=== PATIENT | female | born 1990 ===

== ENCOUNTER 2018-07-24 17:57 | Inpatient (IN) | payer MEDICAID ==
[2018-07-24 18:24] VITALS: BMI 35.8
[2018-07-24] MEDS ORDERED: Lactated Ringer's 1,000 ML IV ONE (18:24)
[2018-07-24 18:50] LABS: SQUAMOUS EPITHIAL 17 /hpf (0-5); URINE BACTERIA RARE (<OCC); URINE BILIRUBIN NEGATIVE (NEGATIVE); URINE BLOOD 3+ (NEGATIVE); URINE CLARITY Hazy (Clear); URINE COLOR Yellow (YELLOW); URINE GLUCOSE (UA) NORMAL (Normal); URINE LEUKOCYTE ESTERASE 3+ Leu/uL (Negative); URINE PROTEIN NEGATIVE (NEGATIVE); URINE UROBILINOGEN NORMAL mg/dL (0.2-1.0)
[2018-07-24 18:56] LABS: ALB/GLOB RATIO 1.1 (1.0-2.1); ALBUMIN 3.5 g/dL (3.5-5.0); ALT/SGPT 14 U/L (9-52); AST/SGOT 26 U/L (14-36); BASO % 0.1 % (0.0-2.0); BLOOD UREA NITROGEN 7 mg/dL (7-17); CALCIUM 9.4 mg/dl (8.6-10.4); EOS % 0.1 % (0.0-4.0); GFR NON-AFRICAN AMERICAN > 60; HEMOGLOBIN 12.7 g/dL (11.0-16.0); LYMPH # 1.8 K/uL (1.0-4.3); LYMPH % 21.1 % (20.0-40.0); MEAN CELL VOLUME 92.6 fL (81.0-99.0); MEAN CORPUSCULAR HEMOGLOBIN 31.3 pg (27.0-31.0); MEAN CORPUSCULAR HGB CONC 33.8 g/dL (33.0-37.0); MEAN PLATELET VOLUME 9.9 fL (7.2-11.7); MONO # 0.7 K/uL (0.0-0.8); MONO % 7.7 % (0.0-10.0); NEUT # 6.1 K/uL (1.8-7.0); RBC 4.06 Mil/uL (3.80-5.20); RED CELL DISTRIBUTION WIDTH 14.8 % (11.5-14.5); WHITE BLOOD COUNT 8.6 K/uL (4.8-10.8)
[2018-07-24] MEDS ORDERED: Oxycodone/Acetaminophen 5/325 mg Tab PO PRN (19:08)
--- NOTE | 2018-07-24 20:22 | OBHP ---
Datetime: 07/24/2018 19:15 IP Adm Impression: Term, intrauterine ; Active labor IP Admit Plan: Admit to unit; Initiate labor protocol Admit Comment, IP Provider: Patient is a 27 year old at 39w3d KIMBERLY 07/28/18 by LMP 10/21/17 who presented to the unit complaining of contractions. Patient states that her contractions started at a pproximately 2am and has been getting stronger. While on the unit, patient reports having vaginal ble eding. Endorses +FM, denies LOF. issues: Denies OB Hx : 1. 2009 at term, male , 7lbs 8oz, no complications 2. 2014 at term, male , 8lbz 7oz, no complications 3. Current [employer] Hx: LMP - unknown [place] - 12 x monthly x 7 days Denies history of abnormal paps, fibroids Hx of ovarian cysts Allergies: NKDA Medications: PNV, Iron daily Medical History: Denies Surgical History: Denies Social History: Denies alcohol, tobacco, drug use Family History: Mother - healthy; Father - healthy PE: see above A/P: Patient is a 27 year old at 39w3d who presents in active labor -Admit to labor and delivery -Category I tracing -Admission labs: CBC, CMP, TS, UA -Lactated ringers bolus -GBS negative - no antibiotics at this time -Plan to AROM and deliver -We anticipate a vaginal delivery Plan discussed with Dr Miquel Renae DO PGY-2 Pt seen and examined with Dr. Renae and her findings and POC were fully discussed with her and agr eed on. Pelvic Type - PN: Adequate Extremities - PN: Normal Abdomen - PN: Normal Back - PN: Normal Breast - PN: Not Done Lungs - PN: Normal Heart - PN: Normal Thyroid - PN: Normal Neurologic - PN: Normal HEENT - PN: Normal General - PN: Normal Presentation-Admit: Vertex FHR - Baseline A Provider: 150 Membranes, Provider: Intact Contraction Comments Provider: q2min Comments, ACOG Physical Exam: VSS Gen: AAOx3. Uncomfortable Abd: Soft, gravid Ext: No clubbing, cyanosis, edema SVE: /0 Gestation - Est Wks by US: 39.3 IP Hx Assessment: The History has been Reviewed and is Current EGA AdmitDate IP: 39.3 Vital Signs Provider: Reviewed; Within Normal Limits IP Indication for Induction: Not Applicable IP Chief Complaint: Uterine contractions; Vaginal bleeding NICHD Variability Prov Fetus A: Moderate 6-25bpm NICHD Accel Fetus A IP Provider: 15X15 FHR Category Provider Fetus A: Category I NICHD Decel Fetus A IP Provider: None Dilatation, Provider: 10 Effacement, Provider: 100 Station, Provider: 0 Genitourinary Exam: Normal DTRs - PN: Normal
--- NOTE | 2018-07-24 20:27 | OBADHP ---
Datetime: 07/24/2018 19:15 Admit Comment, IP Provider: Patient is a 27 year old at 39w3d KIMBERLY 07/28/18 by LMP 10/21/17 who presented to the unit complaining of contractions. Patient states that her contractions started at a pproximately 2am and has been getting stronger. While on the unit, patient reports having vaginal ble eding. Endorses +FM, denies LOF. issues: Denies OB Hx : 1. 2009 at term, male , 7lbs 8oz, no complications 2. 2014 at term, male , 8lbz 7oz, no complications 3. Current [employer] Hx: LMP - unknown Triad - 12 x monthly x 7 days Denies history of abnormal paps, fibroids Hx of ovarian cysts Allergies: NKDA Medications: PNV, Iron daily Medical History: Denies Surgical History: Denies Social History: Denies alcohol, tobacco, drug use Family History: Mother - healthy; Father - healthy PE: see above A/P: Patient is a 27 year old at 39w3d who presents in active labor -Admit to labor and delivery -Category I tracing -Admission labs: CBC, CMP, TS, UA -Lactated ringers bolus -GBS negative - no antibiotics at this time -Plan to AROM and deliver -We anticipate a vaginal delivery Plan discussed with Dr Miquel Renae DO PGY-2 Pt seen and examined with Dr. Renae and her findings and POC were fully discussed with her and agr eed on. Pelvic Type - PN: Adequate Extremities - PN: Normal Abdomen - PN: Normal Back - PN: Normal Breast - PN: Not Done Lungs - PN: Normal Heart - PN: Normal Thyroid - PN: Normal Neurologic - PN: Normal HEENT - PN: Normal General - PN: Normal Presentation-Admit: Vertex FHR - Baseline A Provider: 150 Membranes, Provider: Intact Contraction Comments Provider: q2min Comments, ACOG Physical Exam: VSS Gen: AAOx3. Uncomfortable Abd: Soft, gravid Ext: No clubbing, cyanosis, edema SVE: /0 Gestation - Est Wks by US: 39.3 IP Hx Assessment: The History has been Reviewed and is Current Vital Signs Provider: Reviewed; Within Normal Limits IP Chief Complaint: Uterine contractions; Vaginal bleeding NICHD Variability Prov Fetus A: Moderate 6-25bpm NICHD Accel Fetus A IP Provider: 15X15 FHR Category Provider Fetus A: Category I NICHD Decel Fetus A IP Provider: None Dilatation, Provider: 10 Effacement, Provider: 100 Station, Provider: 0 Genitourinary Exam: Normal DTRs - PN: Normal EGA AdmitDate IP: 39.3 IP Adm Impression: Term, intrauterine ; Active labor; Intact Membranes IP Admit Plan: Admit to unit; Initiate labor protocol
--- NOTE | 2018-07-24 20:47 | OBDS ---
DELIVERY PERSONNEL Delivery Doctor: Lo Lafleur DO MATERNAL INFORMATION Delivery Anesthesia: None Medications in Delivery: pitocin 20 Estimated Blood Loss (ml): 200 Maternal Complications: None Provider Comments: This now P3 delivered a viable female via over second degree lacerati on. Infant;s head was delivered in a controlled manner. Tight nuchal x 1 was clamped and cut. ' s shoulders were delivered atraumatically. Cord also noted over the body. Infant's mouth and nose wer e suctioned with bulb syringe upon delivery of the head and at the completion of the delivery. Apgars 9_9, BW 7lbs, 2oz Cord blood and cord ph were collected and sent to the lab. An intact 3VC placenta was delivered sp ontaneously. EBL 200cc. Dr Lafleur present and participated with entire delivery and repair Dr Lujan present for baby care Pt and both tolerated the procedure well and remained in LDR room in S_S condition. Britni Renae DO PGY-2 Dr Renae and myself performed this delivery as noted above. LABOR SUMMARY EDC: 07/28/2018 00:00 No. Babies in Womb: 1 LABOR INFORMATION Reason for Induction: Not Applicable Group B Beta Strep: Negative Reason Steroids Not Administered: Not Applicable MEMBRANES Membranes Rupture Method: Artificial Rupture of Membranes: 07/24/2018 18:33 Length of Rupture (hrs): 0.03 Amniotic Fluid Color: Clear Amniotic Fluid Amount: Moderate Amniotic Fluid Odor: Normal STAGES OF LABOR Stage 3 hrs: 0 Stage 3 min: 1 VAGINAL DELIVERY Episiotomy: None Laceration Extension: Second Degree Laceration Type: Perineal Laceration Repair: Yes Laceration Repair Note: Second degree perineal laceration was repaired with 2-0 and 3-0 chromic sutu re with anatomic reapproximation. Hemostasis achieved. Sponge Count Correct: Yes BABY A INFORMATION Infant Delivery Date/Time: 07/24/2018 18:35 Method of Delivery: Vaginal Born in Route : No : N/A Forceps: N/A Vacuum Extraction: N/A Shoulder Dystocia : No SHOULDER DYSTOCIA BABY A Infant Delivery Date/Time: 07/24/2018 18:35 PRESENTATION/POSITION BABY A Presentation: Cephalic Cephalic Presentation: Vertex Breech Presentation: N/A PLACENTA INFORMATION BABY A Placenta Delivery Time : 07/24/2018 18:36 Placenta Method of Delivery: Spontaneous Placenta Status: Delivered SCORES BABY A Heart Rate 1 min: >100 bpm Resp Effort 1 min: Good Cry Reflex Irritability 1 min: Cough or Sneeze or Pulls Away Muscle Tone 1 min: Active Motion Color 1 min: Body [place], Extremities Blue SCORE 1 MIN: 9 Heart Rate 5 min: >100 bpm Resp Effort 5 min: Good Cry Reflex Irritability 5 min: Cough or Sneeze or Pulls Away Muscle Tone 5 min: Active Motion Color 5 min: Body [place], Extremities Blue SCORE 5 MIN: 9 INFANT INFORMATION BABY A Gestational Age at Delivery: 39.0 Gestational Status: Term Infant Outcome : Liveborn Infant Condition : Stable Sex: Female IDENTIFICATION/MEDS BABY A ID Band Number: [id number] ID Band Location: Left Leg; Left Arm Sensor Applied: Yes Sensor Number: [id number] Sensor Location : Cord Clamp WEIGHT/LENGTH BABY A Birthweight (gms): 3220 Infant Weight (lb): 7 Weight (oz): 2 Length Inches: 19.00 Length cms: 48.3 CORD INFORMATION BABY A No. Cord Vessels: 3 Nuchal Cord : N/A Cord Blood Taken: Yes Suction: Mouth; Nose ASSESSMENT BABY A Complications: None Physical Findings at Delivery: Within Normal Limits Infant Respirations: Appears Normal Compressed Gases Tester/ALS Called : No Care By: dr lujan Transferred To: Remains with Mother
[2018-07-24] MEDS: Benzocaine/Menthol 20%-0.5% Topical Spray (60 ml) TOP PRN (22:17)
[2018-07-25 08:06] LABS: BASO % 0.3 % (0.0-2.0); EOS % 0.4 % (0.0-4.0); HEMOGLOBIN 11.2 g/dL (11.0-16.0); LYMPH # 2.1 K/uL (1.0-4.3); LYMPH % 25.7 % (20.0-40.0); MEAN CELL VOLUME 93.2 fL (81.0-99.0); MEAN CORPUSCULAR HGB CONC 34.3 g/dL (33.0-37.0); MEAN PLATELET VOLUME 9.9 fL (7.2-11.7); MONO # 0.7 K/uL (0.0-0.8); MONO % 7.9 % (0.0-10.0); NEUT # 5.5 K/uL (1.8-7.0); NEUT % 65.7 % (50.0-75.0); RBC 3.5 Mil/uL (3.80-5.20); RED CELL DISTRIBUTION WIDTH 14.8 % (11.5-14.5); WHITE BLOOD COUNT 8.3 K/uL (4.8-10.8)
[2018-07-25 09:13] VITALS: RESP 18
--- NOTE | 2018-07-25 18:06 | OBPPN ---
Datetime: 07/25/2018 07:45 PP Pain Prov: Within normal limits PP Nausea Prov: Denies PP Flatus Prov: Yes PP BM Prov: No PP Breasts Prov: Normal PP Heart Prov: Normal PP Lungs Prov: Normal PP Abdomen/Uterus Prov: Normal PP Lochia Prov: Normal PP Vulva/Perineum Prov: Not Done PP CVA Tenderness Prov: Not Done PP Extremities Prov: Normal PP C/S Incision Prov: Not Applicable PP Progress Prov: Normal PP Comments Phys Exam Prov: Fundal height is 1 finger breadth above/ at umbilicus PP Impression Prov: Normal progression PP Plan Prov: Continue present management PP Progress Note Prov: Patient seen and examined at bedside. No acute events overnight as per nursin g staff. Pain is 6/10 and managed by analgesics. Patient reports moderate lochia, she changed 2 pads last night. She is passing flatus, urinating normally, ambulating well, and tolerating diet. She stat es that the baby is only with good latch. She denies having a bowel movement, nausea, o r vomiting. She further denies fevers, chills, shortness of breath, chest pain, or urinary symptoms. VS: BP:93/56 T: 97.6 HR: 76, O2: 100% Gen: NAD, AAOX3 Cardio: RRR, normal S1, S2 Lungs: CTA b/l Abdomen: Soft, non-tender, normal bowel sounds Extremities: no edema Assessment: Patient is a 27 year old s/p PPD #1. Plan: - Stable, afebrile - Pain control with Ibuprofen and Percocet - Encourage ambulation, hydration, - Advance diet as tolerated - Continue routine post-op care - Plan to discharge on 07/26 - Case discussed with Dr. Romario Riddle, PGY-1 Attending note: patient seen, evaluated and examined by me with the resident. I agree with the abo ve as documented. PPD#1 H/H 11.2/32.7. All else as rene. Patient is clinically stable. Vital Signs Provider PP: Reviewed; Within Normal Limits
[2018-07-26] MEDS: Benzocaine/Menthol 20%-0.5% Topical Spray (60 ml) TOP PRN ×2 (06:00→09:43)
[2018-07-26 08:06] VITALS: BP 99/67; PULSE 70; O2SAT 99
[2018-07-26] MEDS ORDERED: Influenza Vaccine 60 mcg/0.5 mL SYR (4YR UP) IM ONE (12:00)
[2018-07-26 21:13] VITALS: TEMP 97
--- NOTE | 2018-07-27 00:46 | OBDCSUM ---
Datetime: 07/26/2018 13:02 Discharged to, Provider: Home Follow up at, Provider: [facility] [place] Disch Instr Activity: Normal activity; May Shower Disch Instr Diet: Regular Discharge Instructions, Provider: Routine instructions given Discharge Diagnosis, Provider: Term Delivered Discharge Time: 07/26/2018 14:00 Follow up in weeks, Provider: September 06, 2018Tuesday Disch Referrals: None Contraception discussed, Prov: Yes Disch Activity Restrictions: No exercising; No sexual activity; Nothing in vagina - [place], laurence alcantar Discharge Comment, Provider: Patient seen and examined at bedside. No acute events overnight, as per patient and nursing staff. Pain is 4/10 and managed by Motrin only. Pain is secondary to vaginal lac eration. Patient reports minimal lochia, she changed 2 pads last night. She had a normal bowel moveme nt, urinating normally, ambulating well, and tolerating diet. She states that the baby is breastfeedi ng only with good latch. She is planning on a form a control upon discharge, possibly IUD. She denies fevers, chills, nausea, vomiting, shortness of breath, chest pain, or urinary symptoms. VS: BP:99/67 T: 97.0 HR: 70, O2: 100% Gen: NAD, AAOX3 Cardio: RRR, normal S1, S2 Lungs: CTA b/l Abdomen: Soft, non-tender, normal bowel sounds. Fundal height at level of umbilicus. Extremities: no edema Assessment: Patient is a 27 year old s/p PPD #2. Plan: - Stable, afebrile - Pain control with Ibuprofen - Prescriptions given for Ibuprofen and Colace - Encourage ambulation, hydration, - Continue routine post-delivery care - Patient discharged on 07/26 - Case discussed with Dr. Miquel Bobo PGY2 Pt seen and examined with Dr. Bobo and agree with his findings and POC. Contraception after Delivery: IUD
--- NOTE | 2018-07-27 00:47 | OBPPN ---
Datetime: 07/26/2018 07:39 PP Pain Prov: Within normal limits PP Nausea Prov: Denies PP Flatus Prov: Yes PP BM Prov: Yes PP Heart Prov: Normal PP Lungs Prov: Normal PP Abdomen/Uterus Prov: Normal PP Extremities Prov: Normal PP Progress Prov: Normal PP Impression Prov: Normal progression PP Plan Prov: Discharge PP Progress Note Prov: Patient seen and examined at bedside. No acute events overnight, as per nursi staff. Pain is 4/10 and managed by analgesics. Pain is secondary to vaginal laceration. Patient re ports minimal lochia, she changed 2 pads last night. She had a normal bowel movement, urinating chad lly, ambulating well, and tolerating diet. She states that the baby is only with good l atch. She is planning on a form a control upon discharge, possibly IUD. She denies fevers, chil ls, nausea, vomiting, shortness of breath, chest pain, or urinary symptoms. VS: BP:110/62 T: 97.2 HR: 81, O2: 100% Gen: NAD, AAOX3 Cardio: RRR, normal S1, S2 Lungs: CTA b/l Abdomen: Soft, non-tender, normal bowel sounds. Fundal height at level of umbilicus. Extremities: no edema Assessment: Patient is a 27 year old s/p PPD #2. Plan: - Stable, afebrile - Pain control with Ibuprofen and Percocet - Encourage ambulation, hydration, - Advance diet as tolerated - Stable and Satisfactory condition and recovery - Continue routine post-delivery care - Plan to discharge today with instructions and Rx's - Case discussed with Dr. Miquel Bobo PGY2 Pt seen and examined with Dr Bobo and agree with all of his findings and POC IP PP Procedures: None Vital Signs Provider PP: Reviewed; Within Normal Limits
== END 2018-07-26 15:00 | disposition home or self-care (01) | DRG 373 ==
LOC: C.EROB 17:57 → C.4D 18:24 → C.4M 21:31
PROVIDERS: ADMIT Obstetrics & Gynecology; ATTEND Obstetrics & Gynecology
PROC: 10E0XZZ Delivery of Products of Conception, External Approach (ICD-10-PCS; principal; 2018-07-24)
PROC: 0KQM0ZZ Repair Perineum Muscle, Open Approach (ICD-10-PCS; 2018-07-24)
PROC: 10907ZC Drainage of Amniotic Fluid, Therapeutic from Products of Conception, Via Natural or Artificial Opening (ICD-10-PCS; 2018-07-24)
DX: O69.1XX0 Labor and delivery complicated by cord around neck, with compression, not applicable or unspecified (principal); O70.1 Second degree perineal laceration during delivery; Z3A.39 39 weeks gestation of pregnancy; Z37.0 Single live birth